=== PATIENT | male | born 1985 | race Hispanic/Latino ===

== ENCOUNTER 2024-10-10 07:31 | Emergency (ER) | payer SELFPAY ==
[2024-10-10] MEDS ORDERED: Morphine 2 MG/ML VIAL ONE (08:24)
[2024-10-10] MEDS ORDERED: Morphine 4 MG/ML VIAL ONE (08:24)
[2024-10-10] MEDS ORDERED: Promethazine HCl 12.5 MG in Sodium Chloride 0.9% 50 ML IVPB SCH (08:45)
== END 2024-10-10 09:47 | disposition home or self-care (01) ==
LOC: CSHERS 07:31
DX: K80.50 Calculus of bile duct without cholangitis or cholecystitis without obstruction (principal)
CPT/HCPCS: 76705; 96374; 96375; J2272; J2550